=== PATIENT | male | born 1965 | race Caucasian/White ===

== ENCOUNTER 2017-01-01 18:40 | Emergency (ER) | payer OTHER ==
[2017-01-01 19:48] LABS: HEMOGLOBIN 15.1 gm/dl (14.0-17.5); RED BLOOD COUNT 4.97 M/UL (4.20-5.50); WHITE BLOOD COUNT 8.3 K/UL (4.5-11.0)
[2017-01-01 21:27] LABS: BUN/CREATININE RATIO 13 (0-10)
== END 2017-01-01 23:45 | disposition home or self-care (01) ==
LOC: ER1 18:40
PROVIDERS: Physician Assistant
DX: S06.9X9A Unspecified intracranial injury with loss of consciousness of unspecified duration, initial encounter (principal); S16.1XXA Strain of muscle, fascia and tendon at neck level, initial encounter; S39.012A Strain of muscle, fascia and tendon of lower back, initial encounter; S29.012A Strain of muscle and tendon of back wall of thorax, initial encounter; S46.912A Strain of unspecified muscle, fascia and tendon at shoulder and upper arm level, left arm, initial encounter; R07.89 Other chest pain; R10.84 Generalized abdominal pain; E11.9 Type 2 diabetes mellitus without complications; I10 Essential (primary) hypertension; V43.52XA Car driver injured in collision with other type car in traffic accident, initial encounter; Y93.89 Activity, other specified; Y92.410 Unspecified street and highway as the place of occurrence of the external cause
CPT/HCPCS: 36415; 70450; 71010; 71250; 72125; 72128; 72131; 73030; 80053; 81001; 83690; 85025; 93005; 96361; 96374; 99284; J2270; J2405; J7050; Q9962

== ENCOUNTER 2017-02-26 19:26 | Emergency (ER) | payer OTHER | END 2017-02-26 20:02 | disposition home or self-care (01) | LOC: ER1 19:26 | DX: T23.252A Burn of second degree of left palm, initial encounter (principal); E11.9 Type 2 diabetes mellitus without complications; F17.290 Nicotine dependence, other tobacco product, uncomplicated; X08.8XXA Exposure to other specified smoke, fire and flames, initial encounter; Z23 Encounter for immunization | CPT/HCPCS: 16020; 90471; 90714; 99283 ==

== ENCOUNTER → 2017-03-01 | Outpatient (CLI) | payer OTHER | LOC: KOH-I 11:20 | DX: S06.0X9A Concussion with loss of consciousness of unspecified duration, initial encounter (principal) | CPT/HCPCS: 70551 ==